=== PATIENT | male | born 1940 | race Caucasian/White ===

== ENCOUNTER 2019-01-20 19:32 | Inpatient (IN) ==
[2019-01-20] MEDS ORDERED: ALBUTEROL/IPRATROPIUM 3 ML NEB RESP TX STA (20:10)
[2019-01-20] MEDS ORDERED: methylPREDNISolone SOD SUC 125 MG/2 ML VIAL IV STA (20:10)
[2019-01-20 20:36] LABS: Basophils % 0.3 % (0.0-0.8); Eosinophils # 0.2 10*3/uL (0.0-0.87); Eosinophils % 1.4 % (0.00-10.9); Hematocrit 39.7 VOL% (42.0-52.0); Hemoglobin 12.7 GM/DL (14.0-18.0); Immature Granulocytes % 0.5 %; Immature Granulocytes Absolute 0.06 #; Lymphocytes # 2.3 10*3/uL (1.4-4.0); Lymphocytes % 20.9 % (21.2-54.2); Mean Corpuscular Hemoglobin 30 PG (27-34); Mean Corpuscular Volume 92.1 FL (87-102); Mean Platelet Volume 8.4 FL (9.6-12.0); Monocytes # 1.4 10*3/uL (0.11-0.8); Monocytes % 12.4 % (1.7-12.7); Neutrophils # 7.1 10*3/uL (1.4-7.4); Neutrophils % 64.5 % (38.7-73.9); Platelet Count 326 T/CUMM (130-400); Red Blood Count 4.31 MC/CUMM (3.8-5.5); Red Cell Distribution Width 13.4 % (9.3-17.3); White Blood Count 11.1 T/CUMM (4-12)
[2019-01-20 20:52] LABS: Alanine Aminotransferase 19 U/L (16-61); Albumin 2.5 G/DL (3.4-5.0); Alkaline Phosphatase 167 U/L (45-117); Aspartate Amino Transferase 17 U/L (0-37); Bilirubin,Total < 0.39 MG/DL (0.2-1.0); Blood Urea Nitrogen 24 MG/DL (7-18); Calcium 8.5 MG/DL (8.5-10.1); Glucose 93 MG/DL (74-106); Potassium 4.1 MMOL/L (3.5-5.1); Sodium 136 MMOL/L (136-145); Total Protein 6.9 G/DL (6.4-8.3)
[2019-01-20] MEDS ORDERED: ALBUTEROL 2.5 MG/3 ML NEB RESP TX PRN (21:33)
[2019-01-20 21:48] LABS: VBG Base Excess 2.7 MEQ/L (0-4); VBG HCO3 26.4 MEQ/L (24-28); VBG Oxygen Saturation 78.8 %; VBG PH 7.396; VBG PO2 44.6 MMHG (17-40)
[2019-01-20] MEDS: DEXTROSE 5% NACL 0.9% 1,000 ML IV SCH (22:10)
[2019-01-20] MEDS: LEVOFLOXACIN INJ 750 MG in PREMIX 1 EACH IV SCH (22:10)
[2019-01-21 03:02] LABS: Apearance,Urine CLEAR (Clear); Bilirubin,Urine Negative (Negative); Blood, Urine Negative (Negative); Glucose,Urine (UA) Negative (Negative); Ketones,Urine 5 mg/dL (Negative); Mucus,Urine Occasional /LPF (Occasional); Nitrite,Urine Negative (Negative); Protein,Urine Negative; RBC,Urine 2 /HPF (0-4); Urine Color Yellow (Yellow); Urine Specific Gravity 1.017 (1.001-1.035); Urine Urobilinogen < 2.0 EU/DL (0.2-1.0); WBC,Urine 1 /HPF (0-6)
[2019-01-21] MEDS: DEXTROSE 5% NACL 0.9% 1,000 ML IV SCH (06:42)
[2019-01-21] MEDS: methylPREDNISolone SOD SUC 125 MG/2 ML VIAL IV SCH ×2 (08:16→20:52)
[2019-01-21] MEDS ORDERED: AZELASTINE NASAL 137 MCG/SPRAY 30 ML BOTTLE BOTH NARES PRN (08:37)
[2019-01-21] MEDS: METOPROLOL TARTRATE 25 MG TABLET PO SCH ×2 (09:52→20:48)
[2019-01-21] MEDS: COENZYME Q10 100 MG CAPSULE PO SCH (12:55)
[2019-01-21 18:04] LABS: Eosinophils,Pleural Fluid 2 %; Lymphocytes,Pleural Fluid 38 %; Monocytes,Pleural Fluid 34 %; Neutrophils,Pleural Fluid 26 %; RBC,Pleural Fluid 48556 T/CUMM
[2019-01-21] MEDS: SIMVASTATIN 10 MG TABLET PO SCH (20:48)
[2019-01-21] MEDS: ASPIRIN 325 MG TABLET PO SCH (20:50)
[2019-01-21] MEDS: LEVOFLOXACIN INJ 750 MG in PREMIX 1 EACH IV SCH (21:54)
[2019-01-21] MEDS: CETIRIZINE 10 MG TABLET PO SCH (22:34)
[2019-01-22] MEDS: DEXTROSE 5% NACL 0.9% 1,000 ML IV SCH (04:07)
[2019-01-22] MEDS: methylPREDNISolone SOD SUC 125 MG/2 ML VIAL IV SCH ×2 (08:20→20:42)
[2019-01-22] MEDS: COENZYME Q10 100 MG CAPSULE PO SCH (08:21)
[2019-01-22] MEDS: METOPROLOL TARTRATE 25 MG TABLET PO SCH ×2 (08:21→20:42)
[2019-01-22] MEDS: ASPIRIN 325 MG TABLET PO SCH (20:41)
[2019-01-22] MEDS: SIMVASTATIN 10 MG TABLET PO SCH (20:41)
[2019-01-22] MEDS: CETIRIZINE 10 MG TABLET PO SCH (20:42)
[2019-01-22] MEDS: LEVOFLOXACIN INJ 750 MG in PREMIX 1 EACH IV SCH (22:17)
[2019-01-23] MEDS: DEXTROSE 5% NACL 0.9% 1,000 ML IV SCH ×4 (02:18→09:15)
[2019-01-23] MEDS: METOPROLOL TARTRATE 25 MG TABLET PO SCH ×2 (09:52→21:19)
[2019-01-23] MEDS: COENZYME Q10 100 MG CAPSULE PO SCH (09:52)
[2019-01-23] MEDS: methylPREDNISolone SOD SUC 125 MG/2 ML VIAL IV SCH ×2 (09:52→21:19)
[2019-01-23] MEDS: ASPIRIN 325 MG TABLET PO SCH (21:18)
[2019-01-23] MEDS: SIMVASTATIN 10 MG TABLET PO SCH (21:18)
[2019-01-23] MEDS: CETIRIZINE 10 MG TABLET PO SCH (21:19)
[2019-01-23] MEDS: LEVOFLOXACIN INJ 750 MG in PREMIX 1 EACH IV SCH (23:17)
[2019-01-24] MEDS: METOPROLOL TARTRATE 25 MG TABLET PO SCH ×2 (09:46→20:41)
[2019-01-24] MEDS: COENZYME Q10 100 MG CAPSULE PO SCH (09:46)
[2019-01-24] MEDS: methylPREDNISolone SOD SUC 125 MG/2 ML VIAL IV SCH ×2 (09:46→20:41)
[2019-01-24 12:14] LABS: Alanine Aminotransferase 29 U/L (16-61); Albumin 2.3 G/DL (3.4-5.0); Alkaline Phosphatase 151 U/L (45-117); Amylase 20 U/L (25-115); Aspartate Amino Transferase 21 U/L (0-37); Blood Urea Nitrogen 27 MG/DL (7-18); Calcium 8.6 MG/DL (8.5-10.1); Glucose 174 MG/DL (74-106); Osmolality,Calculated 278.1 MOS/KG (273-304); Potassium 4.1 MMOL/L (3.5-5.1); Rheumatoid Factor < 15 IU/ML (<15); Sodium 135 MMOL/L (136-145); Thyroid Stimulating Hormone 0.192 uIU/ml (0.358-3.74); Total Protein 5.9 G/DL (6.4-8.3)
[2019-01-24 13:02] LABS: Basophils % 0.2 % (0.0-0.8); Hematocrit 41.5 VOL% (42.0-52.0); Immature Granulocytes % 1.4 %; Immature Granulocytes Absolute 0.25 #; Lymphocytes % 5.8 % (21.2-54.2); Mean Corpuscular HGB Conc 31.3 GM/DL (32-36); Mean Corpuscular Hemoglobin 30 PG (27-34); Mean Corpuscular Volume 94.1 FL (87-102); Mean Platelet Volume 8.4 FL (9.6-12.0); Monocytes # 1.1 10*3/uL (0.11-0.8); Monocytes % 6.2 % (1.7-12.7); Neutrophils # 15.5 10*3/uL (1.4-7.4); Neutrophils % 86.4 % (38.7-73.9); Platelet Count 373 T/CUMM (130-400); Red Blood Count 4.41 MC/CUMM (3.8-5.5); Red Cell Distribution Width 13.6 % (9.3-17.3)
[2019-01-24 13:13] LABS: Partial Thromboplastin Time 26.9 SECS (0-40)
[2019-01-24 14:14] LABS: Hepatitis A Ab IgM Quant 0.16 Index; Hepatitis A Ab IgM Result Negative (Negative); Hepatitis B Core IgM Quant 0.14 Index; Hepatitis B Core IgM Result Negative (Negative); Hepatitis B Surface Ag Quant < 0.10 Index; Hepatitis B Surface Ag Result Negative (Negative); Hepatitis C Virus Ab Quant 0.14 Index; Hepatitis C Virus Ab Result Negative (Negative)
[2019-01-24 14:25] LABS: Sedimentation Rate-Westergren 46 MM/HR (0-20)
[2019-01-24] MEDS: ASPIRIN 325 MG TABLET PO SCH (20:41)
[2019-01-24] MEDS: SIMVASTATIN 10 MG TABLET PO SCH (20:41)
[2019-01-24] MEDS: CETIRIZINE 10 MG TABLET PO SCH (20:42)
[2019-01-24] MEDS: LEVOFLOXACIN INJ 750 MG in PREMIX 1 EACH IV SCH (22:18)
[2019-01-25] MEDS ORDERED: DIAZEPAM 5 MG TABLET PO ONE (05:00)
[2019-01-25 05:48] LABS: Basophils % 0.1 % (0.0-0.8); Hematocrit 39.3 VOL% (42.0-52.0); Hemoglobin 12.9 GM/DL (14.0-18.0); Immature Granulocytes % 2.6 %; Immature Granulocytes Absolute 0.38 #; Lymphocytes # 1.1 10*3/uL (1.4-4.0); Lymphocytes % 7.1 % (21.2-54.2); Mean Corpuscular HGB Conc 32.8 GM/DL (32-36); Mean Corpuscular Hemoglobin 30 PG (27-34); Mean Corpuscular Volume 90.1 FL (87-102); Mean Platelet Volume 8.9 FL (9.6-12.0); Monocytes # 0.7 10*3/uL (0.11-0.8); Monocytes % 4.9 % (1.7-12.7); Neutrophils # 12.7 10*3/uL (1.4-7.4); Neutrophils % 85.3 % (38.7-73.9); Platelet Count 321 T/CUMM (130-400); Red Blood Count 4.36 MC/CUMM (3.8-5.5); Red Cell Distribution Width 13.4 % (9.3-17.3); White Blood Count 14.9 T/CUMM (4-12)
[2019-01-25 06:02] LABS: Albumin 2.1 G/DL (3.4-5.0); Bilirubin,Total 0.6 MG/DL (0.2-1.0); Calcium 8.4 MG/DL (8.5-10.1); Osmolality,Calculated 282.5 MOS/KG (273-304); Potassium 4.2 MMOL/L (3.5-5.1); Total Protein 5.5 G/DL (6.4-8.3)
[2019-01-25 06:08] LABS: PT Patient Result 11.2 SECS; Partial Thromboplastin Time 27.1 SECS (0-40)
[2019-01-25] MEDS: METOPROLOL TARTRATE 25 MG TABLET PO SCH ×2 (09:54→21:07)
[2019-01-25] MEDS: COENZYME Q10 100 MG CAPSULE PO SCH (09:54)
[2019-01-25] MEDS: methylPREDNISolone SOD SUC 125 MG/2 ML VIAL IV SCH ×2 (09:54→21:06)
[2019-01-25] MEDS: CETIRIZINE 10 MG TABLET PO SCH (21:07)
[2019-01-25] MEDS: ASPIRIN 325 MG TABLET PO SCH (21:07)
[2019-01-25] MEDS: SIMVASTATIN 10 MG TABLET PO SCH (21:07)
[2019-01-25] MEDS: LEVOFLOXACIN INJ 750 MG in PREMIX 1 EACH IV SCH (21:09)
[2019-01-26] MEDS: COENZYME Q10 100 MG CAPSULE PO SCH (09:56)
[2019-01-26] MEDS: METOPROLOL TARTRATE 25 MG TABLET PO SCH ×2 (09:56→20:44)
[2019-01-26] MEDS: methylPREDNISolone SOD SUC 125 MG/2 ML VIAL IV SCH ×2 (09:57→20:50)
[2019-01-26] MEDS: SIMVASTATIN 10 MG TABLET PO SCH (20:44)
[2019-01-26] MEDS: ASPIRIN 325 MG TABLET PO SCH (20:44)
[2019-01-26] MEDS: CETIRIZINE 10 MG TABLET PO SCH (20:44)
[2019-01-26] MEDS: LEVOFLOXACIN INJ 750 MG in PREMIX 1 EACH IV SCH (22:23)
[2019-01-27] MEDS: methylPREDNISolone SOD SUC 125 MG/2 ML VIAL IV SCH ×2 (09:02→21:18)
[2019-01-27] MEDS: COENZYME Q10 100 MG CAPSULE PO SCH (09:02)
[2019-01-27] MEDS: METOPROLOL TARTRATE 25 MG TABLET PO SCH ×2 (09:02→21:20)
[2019-01-27] MEDS: CETIRIZINE 10 MG TABLET PO SCH (21:20)
[2019-01-27] MEDS: SIMVASTATIN 10 MG TABLET PO SCH (21:20)
[2019-01-27] MEDS: ASPIRIN 325 MG TABLET PO SCH (21:20)
[2019-01-27] MEDS: LEVOFLOXACIN INJ 750 MG in PREMIX 1 EACH IV SCH (21:22)
[2019-01-28] MEDS: METOPROLOL TARTRATE 25 MG TABLET PO SCH ×2 (08:26→20:58)
[2019-01-28] MEDS: COENZYME Q10 100 MG CAPSULE PO SCH (08:26)
[2019-01-28] MEDS: methylPREDNISolone SOD SUC 125 MG/2 ML VIAL IV SCH (08:26)
[2019-01-28 11:31] LABS: Prostate Specific Antigen Diag 0.4 NG/ML (0-4)
[2019-01-28] MEDS ORDERED: DIAZEPAM 5 MG TABLET PO PRN (16:02)
[2019-01-28] MEDS: methylPREDNISolone SOD SUC 40 MG/1 ML VIAL IV SCH (20:57)
[2019-01-28] MEDS: CETIRIZINE 10 MG TABLET PO SCH (20:58)
[2019-01-28] MEDS: SIMVASTATIN 10 MG TABLET PO SCH (20:58)
[2019-01-28] MEDS: ASPIRIN 325 MG TABLET PO SCH (20:58)
[2019-01-29] MEDS: METOPROLOL TARTRATE 25 MG TABLET PO SCH (08:25)
[2019-01-29] MEDS: methylPREDNISolone SOD SUC 40 MG/1 ML VIAL IV SCH (08:25)
[2019-01-29] MEDS: COENZYME Q10 100 MG CAPSULE PO SCH (08:25)
[2019-01-29 11:42] VITALS: BP 136/80
[2019-01-29 15:24] LABS: HIV Antigen/Antibody Result Nonreactive (Nonreactive)
[2019-01-30 10:59] LABS: Cancer Antigen 125 35 U/mL; Cancer Antigen 15-3 19 U/mL
[2019-01-30 18:55] LABS: TB2 Ag Minus Result 0 IU/mL
[2019-01-31 15:06] LABS: Glomerular Basement Membrane A < 0.2 U; Myeloperoxidase Antibody < 0.2 U
[2019-01-31 15:51] LABS: Histoplasma Immnodiffusion Negative (Negative)
== END 2019-01-29 12:10 | disposition home or self-care (01) | DRG 181 ==
LOC: N.ED 19:32 → N.EDINP 21:33 → N.5E 01-21 01:35
PROVIDERS: ADMIT Family Medicine; ATTEND Family Medicine
PROC: IRTHORA (2019-01-21 14:00)

== ENCOUNTER 2019-02-08 12:10 | Inpatient (IN) ==
[2019-02-08 13:26] LABS: Basophils % 0.1 % (0.0-0.8); Eosinophils # 0.1 10*3/uL (0.0-0.87); Eosinophils % 0.4 % (0.00-10.9); Hematocrit 40.5 VOL% (42.0-52.0); Hemoglobin 12.9 GM/DL (14.0-18.0); Immature Granulocytes % 1.2 %; Immature Granulocytes Absolute 0.16 #; Lymphocytes % 7.1 % (21.2-54.2); Mean Corpuscular HGB Conc 31.9 GM/DL (32-36); Mean Corpuscular Volume 92.9 FL (87-102); Mean Platelet Volume 9.5 FL (9.6-12.0); Monocytes % 7.4 % (1.7-12.7); Neutrophils % 83.8 % (38.7-73.9); Platelet Count 223 T/CUMM (130-400); Red Blood Count 4.36 MC/CUMM (3.8-5.5); Red Cell Distribution Width 14.5 % (9.3-17.3); White Blood Count 13.4 T/CUMM (4-12)
[2019-02-08] MEDS ORDERED: ALBUTEROL NEB SOLN 5 MG/ML 20 ML/BOTTLE CONT NEB STA (13:29)
[2019-02-08] MEDS ORDERED: FUROSEMIDE 40 MG/4 ML VIAL IV STA (13:29)
[2019-02-08] MEDS ORDERED: methylPREDNISolone SOD SUC 125 MG/2 ML VIAL IV STA (13:33)
[2019-02-08] MEDS ORDERED: VANCOMYCIN INJ 1,000 MG in SODIUM CHLORIDE 0.9% 250 ML IV STA (13:33)
[2019-02-08 13:36] LABS: INR 0.9; PT Patient Result 10.3 SECS; Partial Thromboplastin Time 26.9 SECS (0-40)
[2019-02-08 13:50] LABS: Albumin 2.4 G/DL (3.4-5.0); Bilirubin,Total 0.7 MG/DL (0.2-1.0); Calcium 8.4 MG/DL (8.5-10.1); Osmolality,Calculated 272.2 MOS/KG (273-304); Total Protein 5.6 G/DL (6.4-8.3)
[2019-02-08] MEDS ORDERED: ONDANSETRON 4 MG/2 ML VIAL IV PRN (14:47)
[2019-02-08] MEDS ORDERED: VANCOMYCIN INJ 1,000 MG in SODIUM CHLORIDE 0.9% 250 ML IV ONE (15:30)
[2019-02-08] MEDS ORDERED: HYDROcodone/CHLORPHENIRAMINE ER 5 ML UDCUP PO PRN (16:13)
[2019-02-08] MEDS ORDERED: AZELASTINE NASAL 137 MCG/SPRAY 30 ML BOTTLE BOTH NARES PRN (16:13)
[2019-02-08] MEDS: LEVOFLOXACIN INJ 500 MG in PREMIX 1 EACH IV SCH (18:25)
[2019-02-08] MEDS: ALBUTEROL/IPRATROPIUM 3 ML NEB RESP TX SCH (18:55)
[2019-02-08] MEDS: METOPROLOL TARTRATE 50 MG TABLET PO SCH (20:41)
[2019-02-08] MEDS: ENOXAPARIN 40 MG/0.4 ML SYRINGE SUBCUT SCH (20:41)
[2019-02-08] MEDS: SIMVASTATIN 40 MG TABLET PO SCH (20:41)
[2019-02-08] MEDS: ASPIRIN 325 MG TABLET PO SCH (20:41)
[2019-02-08] MEDS: CETIRIZINE 10 MG TABLET PO SCH (20:41)
[2019-02-08] MEDS: methylPREDNISolone SOD SUC 125 MG/2 ML VIAL IV SCH (22:20)
[2019-02-09] MEDS: ALBUTEROL/IPRATROPIUM 3 ML NEB RESP TX SCH ×4 (00:30→19:23)
[2019-02-09] MEDS: methylPREDNISolone SOD SUC 125 MG/2 ML VIAL IV SCH ×2 (05:50→21:24)
[2019-02-09] MEDS: VANCOMYCIN INJ 1,500 MG in SODIUM CHLORIDE 0.9% 500 ML IV SCH ×2 (05:53→19:02)
[2019-02-09 06:17] LABS: Basophils % 0.1 % (0.0-0.8); Hematocrit 36.3 VOL% (42.0-52.0); Hemoglobin 11.7 GM/DL (14.0-18.0); Immature Granulocytes % 0.4 %; Immature Granulocytes Absolute 0.06 #; Lymphocytes # 0.4 10*3/uL (1.4-4.0); Lymphocytes % 3.3 % (21.2-54.2); Mean Corpuscular HGB Conc 32.2 GM/DL (32-36); Mean Corpuscular Volume 91.4 FL (87-102); Mean Platelet Volume 9.3 FL (9.6-12.0); Monocytes % 1.7 % (1.7-12.7); Neutrophils % 94.5 % (38.7-73.9); Platelet Count 208 T/CUMM (130-400); Red Blood Count 3.97 MC/CUMM (3.8-5.5); Red Cell Distribution Width 14.4 % (9.3-17.3); White Blood Count 13.4 T/CUMM (4-12)
[2019-02-09 06:34] LABS: Troponin I 0.037 NG/ML (0.00-0.045)
[2019-02-09 06:36] LABS: Calcium 8.2 MG/DL (8.5-10.1); Osmolality,Calculated 273.2 MOS/KG (273-304)
[2019-02-09 06:49] LABS: Lymphocytes 5 % (20-55); Segmented Neutrophils 94 % (50-85); Total Cells Counted 100
[2019-02-09 06:50] LABS: Platelet Estimate Normal
[2019-02-09] MEDS: FOLIC ACID 1 MG TABLET PO SCH (08:56)
[2019-02-09] MEDS: PANTOPRAZOLE 40 MG TABLET PO SCH (08:56)
[2019-02-09] MEDS: LACTOBACILLUS ACIDOPHILUS/BULGARICUS CAPLET PO SCH (08:56)
[2019-02-09] MEDS: COENZYME Q10 100 MG CAPSULE PO SCH (08:56)
[2019-02-09] MEDS: METOPROLOL TARTRATE 50 MG TABLET PO SCH ×2 (08:56→21:23)
[2019-02-09] MEDS ORDERED: ASPIRIN 325 MG TABLET PO SCH (09:00)
[2019-02-09] MEDS: FUROSEMIDE 40 MG TABLET PO SCH (09:25)
[2019-02-09] MEDS: LEVOFLOXACIN INJ 500 MG in PREMIX 1 EACH IV SCH (17:52)
[2019-02-09] MEDS ORDERED: POLYETHYLENE GLYCOL POWDER 17 GM PACK PO PRN (18:07)
[2019-02-09] MEDS: ASPIRIN 325 MG TABLET PO SCH (21:23)
[2019-02-09] MEDS: CETIRIZINE 10 MG TABLET PO SCH (21:23)
[2019-02-09] MEDS: SIMVASTATIN 40 MG TABLET PO SCH (21:23)
[2019-02-09] MEDS: ENOXAPARIN 40 MG/0.4 ML SYRINGE SUBCUT SCH (21:24)
[2019-02-10] MEDS: ALBUTEROL/IPRATROPIUM 3 ML NEB RESP TX SCH ×4 (01:39→19:29)
[2019-02-10] MEDS: VANCOMYCIN INJ 1,500 MG in SODIUM CHLORIDE 0.9% 500 ML IV SCH ×2 (06:05→18:37)
[2019-02-10 06:18] LABS: Basophils % 0.1 % (0.0-0.8); Hematocrit 35.1 VOL% (42.0-52.0); Hemoglobin 11.3 GM/DL (14.0-18.0); Immature Granulocytes % 1.3 %; Immature Granulocytes Absolute 0.22 #; Lymphocytes # 0.5 10*3/uL (1.4-4.0); Lymphocytes % 2.8 % (21.2-54.2); Mean Corpuscular HGB Conc 32.2 GM/DL (32-36); Mean Corpuscular Volume 93.1 FL (87-102); Mean Platelet Volume 9.6 FL (9.6-12.0); Monocytes % 2.4 % (1.7-12.7); Neutrophils % 93.4 % (38.7-73.9); Platelet Count 206 T/CUMM (130-400); Red Blood Count 3.77 MC/CUMM (3.8-5.5); Red Cell Distribution Width 14.6 % (9.3-17.3); White Blood Count 17.4 T/CUMM (4-12)
[2019-02-10 06:42] LABS: Hypochromasia 1+; Lymphocytes 2 % (20-55); Platelet Estimate Adequate; Segmented Neutrophils 98 % (50-85); Total Cells Counted 100
[2019-02-10 06:55] LABS: Calcium 8.2 MG/DL (8.5-10.1); Osmolality,Calculated 281.7 MOS/KG (273-304)
[2019-02-10] MEDS: LACTOBACILLUS ACIDOPHILUS/BULGARICUS CAPLET PO SCH (09:00)
[2019-02-10] MEDS: PANTOPRAZOLE 40 MG TABLET PO SCH (09:01)
[2019-02-10] MEDS: FOLIC ACID 1 MG TABLET PO SCH (09:01)
[2019-02-10] MEDS: METOPROLOL TARTRATE 50 MG TABLET PO SCH ×2 (09:01→20:46)
[2019-02-10] MEDS: methylPREDNISolone SOD SUC 125 MG/2 ML VIAL IV SCH (09:01)
[2019-02-10] MEDS: FUROSEMIDE 40 MG TABLET PO SCH (09:01)
[2019-02-10] MEDS: COENZYME Q10 100 MG CAPSULE PO SCH (09:01)
[2019-02-10] MEDS ORDERED: methylPREDNISolone SOD SUC 40 MG/1 ML VIAL IV SCH (13:01)
[2019-02-10] MEDS: LEVOFLOXACIN INJ 500 MG in PREMIX 1 EACH IV SCH (17:17)
[2019-02-10] MEDS: SIMVASTATIN 40 MG TABLET PO SCH (20:45)
[2019-02-10] MEDS: ASPIRIN 325 MG TABLET PO SCH (20:46)
[2019-02-10] MEDS: methylPREDNISolone SOD SUC 40 MG/1 ML VIAL IV SCH (20:47)
[2019-02-10] MEDS: CETIRIZINE 10 MG TABLET PO SCH (20:47)
[2019-02-10] MEDS: ENOXAPARIN 40 MG/0.4 ML SYRINGE SUBCUT SCH (20:47)
[2019-02-11] MEDS: ALBUTEROL/IPRATROPIUM 3 ML NEB RESP TX SCH ×3 (01:30→13:53)
[2019-02-11 05:22] LABS: Basophils % 0.1 % (0.0-0.8); Hematocrit 38.2 VOL% (42.0-52.0); Hemoglobin 11.6 GM/DL (14.0-18.0); Immature Granulocytes Absolute 0.16 #; Lymphocytes # 0.6 10*3/uL (1.4-4.0); Lymphocytes % 3.9 % (21.2-54.2); Mean Corpuscular HGB Conc 30.4 GM/DL (32-36); Mean Corpuscular Volume 95.3 FL (87-102); Mean Platelet Volume 9.3 FL (9.6-12.0); Monocytes % 3.3 % (1.7-12.7); Neutrophils % 91.7 % (38.7-73.9); Platelet Count 211 T/CUMM (130-400); Red Blood Count 4.01 MC/CUMM (3.8-5.5); Red Cell Distribution Width 14.8 % (9.3-17.3); White Blood Count 15.6 T/CUMM (4-12)
[2019-02-11] MEDS: VANCOMYCIN INJ 1,500 MG in SODIUM CHLORIDE 0.9% 500 ML IV SCH (06:00)
[2019-02-11 06:10] LABS: Band Neutrophils 1 % (0-10); Lymphocytes 3 % (20-55); Platelet Estimate Normal; Segmented Neutrophils 94 % (50-85); Total Cells Counted 100
[2019-02-11 06:45] LABS: Calcium 8.2 MG/DL (8.5-10.1); Osmolality,Calculated 281.7 MOS/KG (273-304)
[2019-02-11] MEDS: COENZYME Q10 100 MG CAPSULE PO SCH (09:04)
[2019-02-11] MEDS: FUROSEMIDE 40 MG TABLET PO SCH (09:05)
[2019-02-11] MEDS: LACTOBACILLUS ACIDOPHILUS/BULGARICUS CAPLET PO SCH (09:05)
[2019-02-11] MEDS: PANTOPRAZOLE 40 MG TABLET PO SCH (09:05)
[2019-02-11] MEDS: FOLIC ACID 1 MG TABLET PO SCH (09:05)
[2019-02-11] MEDS: METOPROLOL TARTRATE 50 MG TABLET PO SCH (09:05)
[2019-02-11] MEDS: methylPREDNISolone SOD SUC 40 MG/1 ML VIAL IV SCH (09:06)
[2019-02-11 11:18] LABS: INR 0.9; PT Patient Result 10.3 SECS
[2019-02-11 11:28] VITALS: BP 129/92
== END 2019-02-11 15:38 | disposition home or self-care (01) | DRG 181 ==
LOC: N.ED 12:10 → N.EDINP 14:46 → N.TELES 15:07
PROVIDERS: ADMIT Family Medicine; ATTEND Family Medicine